=== PATIENT | female | born 1960 | race Caucasian/White ===

== ENCOUNTER 2021-12-25 14:45 | Inpatient (IN) ==
[2021-12-25] MEDS ORDERED: Nitroglycerin 0.4 MG TAB.SUBL SL PRN (18:27)
[2021-12-25] MEDS ORDERED: Acetaminophen 325 MG TABLET PO PRN (18:27)
[2021-12-25] MEDS ORDERED: Melatonin 3 MG TABLET PO PRN (18:27)
[2021-12-25] MEDS ORDERED: Naloxone 0.4 MG/ML INJ IVP PRN (18:27)
[2021-12-25] MEDS ORDERED: *HR* Heparin 5,000 UNIT/ML VIAL IVP ONE (18:36)
[2021-12-25] MEDS ORDERED: *HR* Heparin 5,000 UNIT/ML VIAL IVP PRN ×2 (18:36)
[2021-12-25] MEDS ORDERED: Heparin 25,000UNIT/250ML 1/2NS 25,000 UNIT/250 ML IV.SOLN IVC SCH ×2 (18:45→19:01)
[2021-12-25 20:11] LABS: Hematocrit 48.5 % (35.3-44.9); Hemoglobin 15.7 g/dL (11.5-15.4); Mean Corpuscular HGB Conc 32.4 g/dL (31.6-35.5); Mean Corpuscular Volume 92.7 fL (83.0-100.0); Mean Platelet Volume 9.9 fL (9.4-12.4); Platelet Count 355 K/mcL (140-400); Red Blood Count 5.23 M/mcL (3.82-4.97); Red Cell Distribution Width 13.7 % (11.5-14.5); White Blood Count 13.5 K/mcL (4.3-11.1)
[2021-12-25 20:18] LABS: INR 1.1; Prothrombin Time 12.6 Seconds (9.4-12.1)
[2021-12-25 20:34] LABS: Activated Partial Thrombo Time 186.3 Seconds (26.0-36.0); Heparin anti-factor XA UFH 1.13 IU/mL (0.30-0.70)
[2021-12-25] MEDS ORDERED: 0.9 % Sodium Chloride 500 ML IVC ONE (20:55)
[2021-12-26] MEDS ORDERED: Budesonide/Formoterol 160/4.5 1 PUFF INH IH PRN (00:12)
[2021-12-26] MEDS ORDERED: hydrOXYzine pamoate 25 MG CAPSULE PO PRN (00:33)
[2021-12-26 04:17] LABS: Basophils # 0.1 K/mcL (0.0-0.2); Basophils % 0.9 %; Eosinophils # 0.4 K/mcL (0.0-0.6); Eosinophils % 2.9 %; Hematocrit 43.9 % (35.3-44.9); Immature Granulocytes % 1.7 % (0-4); Lymphocytes # 4.8 K/mcL (0.6-4.6); Lymphocytes % 36.8 %; Mean Corpuscular HGB Conc 31.9 g/dL (31.6-35.5); Mean Corpuscular Hemoglobin 29.5 pg (28.0-33.3); Mean Corpuscular Volume 92.4 fL (83.0-100.0); Mean Platelet Volume 9.9 fL (9.4-12.4); Monocytes # 0.9 K/mcL (0.0-1.3); Monocytes % 7.3 %; Neutrophils # 6.5 K/mcL (1.6-8.9); Platelet Count 361 K/mcL (140-400); Red Blood Count 4.75 M/mcL (3.82-4.97); Red Cell Distribution Width 13.7 % (11.5-14.5); Segmented Neutrophils % 50.4 %; White Blood Count 12.9 K/mcL (4.3-11.1)
[2021-12-26 04:27] LABS: Estimated Average Glucose 114 mg/dl; Hemoglobin A1C 5.6 %
[2021-12-26 04:29] LABS: INR 1.1; Prothrombin Time 11.7 Seconds (9.4-12.1)
[2021-12-26 04:33] LABS: Activated Partial Thrombo Time 74.6 Seconds (26.0-36.0)
[2021-12-26 04:42] LABS: Albumin 3.3 g/dL (3.5-5.7); Albumin/Globulin Ratio 1.7 (1.1-2.2); Bilirubin,Total 0.3 mg/dL (0.3-1.0); Calcium 8.6 mg/dL (8.6-10.3); Potassium 4.3 mEq/L (3.5-5.1); Total Protein 5.3 g/dL (6.4-8.9)
[2021-12-26 04:53] LABS: Thyroid Stimulating Hormone 1.197 mcIU/mL (0.340-5.600)
[2021-12-26] MEDS: Metoprolol XL (24 HR) Succ 25 MG TAB.ER.24H PO SCH (08:12)
[2021-12-26] MEDS: Aspirin 81 MG TAB.CHEW PO SCH (08:12)
[2021-12-26] MEDS: FLUoxetine 20 MG CAPSULE PO SCH (08:12)
[2021-12-26] MEDS: Gabapentin 400 MG CAPSULE PO SCH (08:12)
[2021-12-26] MEDS: Tiotropium 10 INH DOSE IH SCH (10:14)
[2021-12-26] MEDS ORDERED: *HR* FentaNYL (PF) 100 MCG/2 ML VIAL ONE (14:22)
[2021-12-26] MEDS ORDERED: *HR* Midazolam HCl 2 MG/2 ML VIAL ONE (14:22)
[2021-12-26] MEDS ORDERED: Iopamidol - 370 200 ML INFUS..BTL ONE (14:23)
[2021-12-26] MEDS ORDERED: *HR* Heparin 10,000 UNIT/10 ML VIAL ONE (14:23)
[2021-12-26] MEDS ORDERED: Heparin 1,000 UNITS/500 mL 500 ML ONE (14:23)
[2021-12-26] MEDS ORDERED: 0.9 % Sodium Chloride 1,000 ML ONE (14:23)
[2021-12-26] MEDS ORDERED: Nitroglycerin 1,000 MCG/5 ML VIAL IV ONE (14:23)
[2021-12-26] MEDS ORDERED: Patient Taking Own Medication 1 EACH PO SCH (14:30)
[2021-12-26] MEDS: Budesonide/Formoterol 160/4.5 1 PUFF INH IH SCH (20:12)
[2021-12-26] MEDS: Ipratropium/Albuterol Neb 3 ML IH PRN (20:13)
[2021-12-26] MEDS: Apixaban 2.5 MG TABLET PO SCH (20:32)
[2021-12-27 01:11] LABS: Hematocrit 43.7 % (35.3-44.9); Hemoglobin 14.1 g/dL (11.5-15.4)
[2021-12-27 01:37] LABS: BUN/Creatinine Ratio 17 (6-26); Blood Urea Nitrogen 19 mg/dL (8-23)
[2021-12-27 01:41] LABS: Troponin I 0.22 ng/mL (< 0.04)
[2021-12-27] MEDS: Gabapentin 400 MG CAPSULE PO SCH (08:32)
[2021-12-27] MEDS: Aspirin 81 MG TAB.CHEW PO SCH (08:32)
[2021-12-27] MEDS: FLUoxetine 20 MG CAPSULE PO SCH (08:32)
[2021-12-27] MEDS: Apixaban 2.5 MG TABLET PO SCH (08:33)
[2021-12-27] MEDS ORDERED: Aspirin 81 MG TAB.CHEW PO SCH (09:00)
[2021-12-27] MEDS: Tiotropium 10 INH DOSE IH SCH (10:08)
[2021-12-27] MEDS: Budesonide/Formoterol 160/4.5 1 PUFF INH IH SCH (10:09)
[2021-12-27] MEDS: Ipratropium/Albuterol Neb 3 ML IH PRN (10:09)
[2021-12-27 11:04] VITALS: BP 93/54; PULSE 79; TEMP 97.6; O2SAT 94
[2021-12-27] MEDS: Metoprolol XL (24 HR) Succ 25 MG TAB.ER.24H PO SCH (12:46)
[2021-12-31] MEDS ORDERED: Ergocalciferol (VIT D2) 50,000 UNIT (1.25MG) CAP PO SCH (14:14)
== END 2021-12-27 12:46 | disposition home or self-care (01) | DRG 174 ==
LOC: 2NENU → SUATTDRO 18:27
PROVIDERS: ADMIT Hospitalist; ATTEND Internal Medicine